=== PATIENT | female | born 1970 | race Caucasian/White ===

== ENCOUNTER 2017-06-11 12:27 | Emergency (ER) | payer OTHER ==
[~2017-06-11] VITALS: Ht 165.1 cm; Wt 77.1 kg
[~2017-06-11 12:27] MED LIST: ANTIVERT12.5 MG PO; CIPRO500 MG PO; DOXYCYCLINE 10100 MG PO; IBUPROFEN 600600 M1 PO; KEFLEX500 MG PO; MEDROL DOSPAK21 TA1 PO; MOBIC15 MG PO; NORCO 5-325 TA1 EACH PO; PERCOCET 5-3251 EACH PO; SLEEPING PILL; TRAMADOL 50 MG50 MG; WELLBUTRIN SR150 MG PO; XANAX 0.25 MG0.25 MG PO; XANAX 0.5 MG0.5 MG PO; ZYRTEC10 M2 PO
[2017-06-11 13:30] LABS: ABSOLUTE NEUTROPHILS 5.4 thou/uL (1.4-8.2); BASOPHILS 0.4 % (0.0-2.0); EOSINOPHILS 2.1 % (0.0-3.0); HEMATOCRIT 39.8 % (37.0-47.0); HEMOGLOBIN 13.5 gm/dL (12.0-15.0); LYMPHOCYTES 27.1 % (24.0-44.0); MCH 30.5 pg (26.0-34.0); MCHC 33.9 g/dL (28.0-37.0); MONOCYTES 7.5 % (1.0-8.0); PLATELET COUNT 382 thou/uL (150-400); POLYS 62.9 % (36.0-66.0); RBC 4.42 mil/uL (4.20-5.00); RDW 12.2 % (10.5-14.5); URINE BILIRUBIN NEGATIVE (Negative); URINE BLOOD NEGATIVE (Negative); URINE COLOR YELLOW; URINE GLUCOSE-RANDOM* NEGATIVE (Negative); URINE KETONES NEGATIVE (Negative); URINE NITRITE NEGATIVE (Negative); URINE PROTEIN (DIPSTICK) NEGATIVE (Negative); URINE SPECIFIC GRAVITY 1.015 (1.003-1.035); URINE UROBILINOGEN 0.2 E.U./dl (0.2-1.0); WBC 8.5 thou/uL (4.0-11.0)
[2017-06-11 13:34] LABS: MANUAL DIFF NO
[2017-06-11 13:38] LABS: CALCIUM 8.2 mg/dL (8.5-10.1); CREATININE 0.8 mg/dL (0.6-1.0)
[2017-06-11 13:45] LABS: ALBUMIN 3.8 g/dL (3.4-5.0); TOTAL BILIRUBIN 0.4 mg/dL (<0.1-1.0); TOTAL PROTEIN 7.4 g/dL (6.4-8.2)
[2017-06-11 16:09] VITALS: BP 122/79
[2017-06-11] MEDS ORDERED: NORCO 5-325 TA1 EACH PO (16:17)
[2017-06-11] MEDS ORDERED: IBUPROFEN 600600 M1 PO (16:17)
[2017-06-11] MEDS ORDERED: TIZANIDINE HCL4 MG PO (16:17)
[2017-06-11] MEDS ORDERED: ONDANSETRON HCL4 M2 PO (16:22)
== END 2017-06-11 16:25 | disposition home or self-care (01) ==
LOC: ER 12:27
PROVIDERS: Nurse Practitioner
DX: M79.622 Pain in left upper arm (principal); R07.89 Other chest pain; Z90.711 Acquired absence of uterus with remaining cervical stump

== ENCOUNTER 2018-03-02 16:21 | Emergency (ER) | payer OTHER ==
[~2018-03-02] VITALS: Ht 165.1 cm; Wt 59.9 kg
[2018-03-02 16:21] VITALS: BP 138/74
[~2018-03-02 16:21] MED LIST changes: +ONDANSETRON HCL4 M2 PO; +TIZANIDINE HCL4 MG PO
[2018-03-02] MEDS ORDERED: NAPROSYN500 MG PO (16:39)
== END 2018-03-02 17:00 | disposition home or self-care (01) ==
LOC: ER 16:21
DX: M70.90 Unspecified soft tissue disorder related to use, overuse and pressure of unspecified site (principal); M25.561 Pain in right knee; Z90.710 Acquired absence of both cervix and uterus

== ENCOUNTER 2018-09-07 11:40 | Emergency (ER) | payer OTHER ==
[~2018-09-07] VITALS: Ht 165.1 cm; Wt 81.7 kg
[~2018-09-07 11:40] MED LIST changes: +NAPROSYN500 MG PO
[2018-09-07 12:40] LABS: URINE CLARITY CLEAR; URINE COLOR YELLOW
[2018-09-07 12:41] LABS: URINE BILIRUBIN NEGATIVE (Negative); URINE BLOOD NEGATIVE (Negative); URINE GLUCOSE-RANDOM* NEGATIVE (Negative); URINE KETONES NEGATIVE (Negative); URINE LEUKOCYTES-REFLEX NEGATIVE (Negative); URINE NITRITE-REFLEX NEGATIVE (Negative); URINE PROTEIN (DIPSTICK) NEGATIVE (Negative); URINE UROBILINOGEN 0.2 E.U./dl (0.2-1.0)
[2018-09-07 13:34] LABS: ABSOLUTE NEUTROPHILS 4.7 thou/uL (1.4-8.2); BASOPHILS 0.6 % (0.0-2.0); EOSINOPHILS 2.6 % (0.0-3.0); HEMATOCRIT 38.3 % (37.0-47.0); HEMOGLOBIN 13.1 gm/dL (12.0-15.0); LYMPHOCYTES 27.3 % (24.0-44.0); MCH 31.4 pg (26.0-34.0); MCHC 34.3 g/dL (28.0-37.0); MCV 91.6 fL (80.0-100.0); MONOCYTES 6.4 % (1.0-8.0); PLATELET COUNT 365 thou/uL (150-400); POLYS 63.1 % (36.0-66.0); RBC 4.18 mil/uL (4.20-5.00); RDW 12.6 % (10.5-14.5); WBC 7.4 thou/uL (4.0-11.0)
[2018-09-07 13:42] LABS: CALCIUM 8.6 mg/dL (8.5-10.1); CREATININE 0.8 mg/dL (0.6-1.0); POTASSIUM 3.8 mmol/L (3.5-5.1)
[2018-09-07 13:48] LABS: ALBUMIN 3.7 g/dL (3.4-5.0); TOTAL BILIRUBIN 0.4 mg/dL (<0.1-1.0); TOTAL PROTEIN 7.1 g/dL (6.4-8.2)
[2018-09-07] MEDS ORDERED: NORCO 10-325 T1 EACH PO (16:20)
[2018-09-07] MEDS ORDERED: ONDANSETRON HCL4 M2 PO (16:20)
[2018-09-07 16:28] VITALS: BP 125/83
== END 2018-09-07 16:29 | disposition home or self-care (01) ==
LOC: ER 11:40
PROVIDERS: Physician Assistant
DX: N81.10 Cystocele, unspecified (principal); R11.0 Nausea; R10.30 Lower abdominal pain, unspecified; Z90.711 Acquired absence of uterus with remaining cervical stump; Z85.41 Personal history of malignant neoplasm of cervix uteri

== ENCOUNTER 2018-11-19 09:43 | Emergency (ER) | payer OTHER ==
[~2018-11-19] VITALS: Ht 165.1 cm; Wt 81.7 kg
[2018-11-19 09:43] VITALS: BP 125/86
[~2018-11-19 09:43] MED LIST changes: +NORCO 10-325 T1 EACH PO
[2018-11-19] MEDS ORDERED: SYNTHROID50 MCG PO (09:52)
[2018-11-19] MEDS ORDERED: ESTRADIOL1 EAC3 TOP (09:52)
[2018-11-19] MEDS ORDERED: ZOLPIDEM TARTRA10 MG PO (09:52)
[2018-11-19 10:19] LABS: URINE BILIRUBIN NEGATIVE (Negative); URINE BLOOD NEGATIVE (Negative); URINE CLARITY CLEAR; URINE COLOR YELLOW; URINE GLUCOSE-RANDOM* NEGATIVE (Negative); URINE KETONES NEGATIVE (Negative); URINE LEUKOCYTES-REFLEX NEGATIVE (Negative); URINE NITRITE-REFLEX NEGATIVE (Negative); URINE PROTEIN (DIPSTICK) NEGATIVE (Negative); URINE SPECIFIC GRAVITY <= 1.005 (1.005-1.035); URINE UROBILINOGEN 0.2 E.U./dl (0.2-1.0)
[2018-11-19 10:45] LABS: ABSOLUTE NEUTROPHILS 5.2 thou/uL (1.4-8.2); BASOPHILS 0.7 % (0.0-2.0); HEMOGLOBIN 12.8 gm/dL (12.0-15.0); LYMPHOCYTES 26.2 % (24.0-44.0); MCH 31.2 pg (26.0-34.0); MCHC 34.7 g/dL (28.0-37.0); MONOCYTES 6.4 % (1.0-8.0); PLATELET COUNT 357 thou/uL (150-400); POLYS 63.7 % (36.0-66.0); RBC 4.11 mil/uL (4.20-5.00); RDW 12.6 % (10.5-14.5); WBC 8.1 thou/uL (4.0-11.0)
[2018-11-19 10:53] LABS: CREATININE 0.7 mg/dL (0.6-1.0)
[2018-11-19 10:59] LABS: ALBUMIN 3.5 g/dL (3.4-5.0); TOTAL BILIRUBIN 0.4 mg/dL (<0.1-1.0); TOTAL PROTEIN 6.9 g/dL (6.4-8.2)
[2018-11-19] MEDS ORDERED: NORFLEX100 MG PO (11:17)
[2018-11-19] MEDS ORDERED: PREDNISONE 10 M10 MG PO (11:17)
== END 2018-11-19 11:37 | disposition home or self-care (01) ==
LOC: ER 09:43
PROVIDERS: Physician Assistant
DX: M54.41 Lumbago with sciatica, right side (principal); Z90.711 Acquired absence of uterus with remaining cervical stump; Z85.41 Personal history of malignant neoplasm of cervix uteri

== ENCOUNTER 2019-01-05 11:57 | Emergency (ER) | payer OTHER ==
[~2019-01-05] VITALS: Ht 165.1 cm; Wt 81.7 kg
[~2019-01-05 11:57] MED LIST changes: +ESTRADIOL1 EAC3 TOP; +NORFLEX100 MG PO; +PREDNISONE 10 M10 MG PO; +SYNTHROID50 MCG PO; +ZOLPIDEM TARTRA10 MG PO
[2019-01-05 12:15] LABS: URINE BILIRUBIN NEGATIVE (Negative); URINE BLOOD NEGATIVE (Negative); URINE CLARITY CLEAR; URINE COLOR YELLOW; URINE GLUCOSE-RANDOM* NEGATIVE (Negative); URINE KETONES NEGATIVE (Negative); URINE LEUKOCYTES-REFLEX NEGATIVE (Negative); URINE NITRITE-REFLEX NEGATIVE (Negative); URINE PROTEIN (DIPSTICK) NEGATIVE (Negative); URINE UROBILINOGEN 0.2 E.U./dl (0.2-1.0)
[2019-01-05] MEDS ORDERED: CYCLOBENZAPRINE5 MG PO (13:40)
[2019-01-05] MEDS ORDERED: NORCO 5-325 TA1 EACH PO (13:40)
[2019-01-05 16:38] VITALS: BP 121/84
== END 2019-01-05 14:14 | disposition home or self-care (01) ==
LOC: ER 11:57
PROVIDERS: Emergency Medicine
DX: M54.5 Low back pain (principal); R35.0 Frequency of micturition; Z90.710 Acquired absence of both cervix and uterus; Z85.41 Personal history of malignant neoplasm of cervix uteri

== ENCOUNTER 2019-07-17 12:15 | Emergency (ER) | payer OTHER ==
[~2019-07-17] VITALS: Ht 165.1 cm; Wt 84.8 kg
[~2019-07-17 12:15] MED LIST changes: +CYCLOBENZAPRINE5 MG PO
[2019-07-17] MEDS ORDERED: NABUMETONE 750750 M1 PO (13:04)
[2019-07-17 13:28] VITALS: BP 110/72
== END 2019-07-17 13:29 | disposition home or self-care (01) ==
LOC: ER 12:15
DX: M70.871 Other soft tissue disorders related to use, overuse and pressure, right ankle and foot (principal); Z85.41 Personal history of malignant neoplasm of cervix uteri; Z90.711 Acquired absence of uterus with remaining cervical stump; Y93.89 Activity, other specified